=== PATIENT | male | born 1970 | race American Indian/Alaskan Native ===

== ENCOUNTER 2017-09-22 18:41 | Inpatient (IN) | payer MEDICAID ==
[2017-09-22] MEDS ORDERED: Aspirin 325 mg EC Tablets PO STA (19:28)
[2017-09-22 19:41] LABS: BASO # 0.1 K/uL (0.0-0.2); BASO % 1.2 % (0.0-2.0); EOS # 0.1 K/uL (0.0-0.7); HEMATOCRIT 42.9 % (35.0-51.0); LYMPH # 2.4 K/uL (1.0-4.3); MEAN CELL VOLUME 83.8 fL (80.0-94.0); MEAN CORPUSCULAR HEMOGLOBIN 29.1 pg (27.0-31.0); MEAN CORPUSCULAR HGB CONC 34.7 g/dL (33.0-37.0); MEAN PLATELET VOLUME 7.5 fL (7.2-11.7); MONO # 0.5 K/uL (0.0-0.8); MONO % 7.6 % (0.0-10.0); NRBC % 0.1 % (0.0-2.0); RED CELL DISTRIBUTION WIDTH 14.3 % (11.5-14.5)
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
[2017-09-22] MEDS ORDERED: Aspirin 325 mg EC Tablets PO ONE ×2 (19:42→19:52)
--- NOTE | 2017-09-22 19:57 | RAD ---
PROCEDURE: CHEST RADIOGRAPH, 1 VIEW HISTORY: chest pain COMPARISON: Chest radiograph 12/02/2014. FINDINGS: LUNGS: No acute infiltrate is identified bilaterally. PLEURA: No pneumothorax or pleural fluid seen. CARDIOVASCULAR: Normal. OSSEOUS STRUCTURES: No significant abnormalities. VISUALIZED UPPER ABDOMEN: Normal. OTHER FINDINGS: None. IMPRESSION: No interval acute cardiopulmonary disease appreciated.
[2017-09-22 19:59] LABS: ALB/GLOB RATIO 1.3 (1.0-2.1); ALKALINE PHOSPHATASE 93 U/L (38-126); ALT/SGPT 41 U/L (21-72); AST/SGOT 26 U/L (17-59); BILIRUBIN,TOTAL 0.9 mg/dL (0.2-1.3); BLOOD UREA NITROGEN 16 mg/dL (9-20); CALCIUM 8.7 mg/dl (8.6-10.4); CARBON DIOXIDE 29 mmol/L (22-30); CHLORIDE 102 mmol/L (98-107); GFR AFRICAN-AMERICAN > 60; GLUCOSE,RANDOM 116 mg/dL (75-110); SODIUM 141 mmol/L (132-148)
[2017-09-22] MEDS ORDERED: Nitroglycerin 2% Ointment Foilpak UD TOP STA (20:20)
[2017-09-22] MEDS ORDERED: Nitroglycerin 2% Ointment Foilpak UD TOP ONE (20:31)
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
[2017-09-23 04:06] LABS: TROPONIN I 0.029 ng/mL (0.00-0.120)
[2017-09-23] MEDS: Pantoprazole 40 mg EC Tab PO SCH (10:27)
[2017-09-23] MEDS: Enoxaparin 40 mg Syringe SC SCH (10:28)
--- NOTE | 2017-09-23 18:38 | CP.PCM.PN ---
Subjective - Date & Time of Evaluation Date of Evaluation: 09/23/17 Time of Evaluation: 13:00 - Subjective Subjective: clinically same Objective - Vital Signs/Intake and Output Vital Signs (last 24 hours): Temp Pulse Resp BP Pulse Ox 98.1 F 73 20 143/80 96 09/23/17 17:02 09/23/17 17:02 09/23/17 17:02 09/23/17 17:02 09/23/17 17:02 Intake and Output: 09/23/17 09/23/17 06:59 18:59 Intake Total 200 Balance 200 - Medications Medications: Current Medications Aspirin (Aspirin) 325 mg PO DAILY [facility] Last Admin: 09/23/17 10:27 Dose: 325 mg Enoxaparin Sodium (Lovenox) 40 mg SC DAILY [facility] Last Admin: 09/23/17 10:28 Dose: 40 mg Pantoprazole Sodium (Protonix Ec Tab) 40 mg PO DAILY [facility] Last Admin: 09/23/17 10:27 Dose: 40 mg - Labs Labs: 09/22/17 19:39 09/22/17 19:39 - Constitutional Appears: Well - Head Exam Head Exam: ATRAUMATIC, NORMAL INSPECTION, NORMOCEPHALIC - Eye Exam Eye Exam: EOMI, Normal appearance, PERRL Pupil Exam: NORMAL ACCOMODATION, PERRL - ENT Exam ENT Exam: Mucous Membranes Moist, Normal Exam - Neck Exam Neck Exam: Full ROM, Normal Inspection. absent: Lymphadenopathy - Respiratory Exam Respiratory Exam: Clear to Ausculation Bilateral, NORMAL BREATHING PATTERN - Cardiovascular Exam Cardiovascular Exam: REGULAR RHYTHM, +S1, +S2. absent: Murmur - GI/Abdominal Exam GI & Abdominal Exam: Soft, Normal Bowel Sounds. absent: Tenderness - Rectal Exam Rectal Exam: Deferred Assessment and Plan (1) Chest pain Status: Acute (2) Abnormal EKG Status: Acute (3) Bleeding hemorrhoid Status: Acute (4) Chest discomfort Status: Acute (5) Chest pain Status: Acute (6) HTN (hypertension) Status: Acute (7) Headache Status: Acute (8) Pancreatitis Status: Acute (9) Prophylactic measure Status: Acute (10) Syncope Status: Acute - Assessment and Plan (Free Text) Plan: Patient examined. EKG normal. Chest x-ray normal. Troponin I negative. CK-MB normal. Continue aspirin. Continue supportive care. Observation.
[2017-09-24] MEDS: Metoprolol Succinate 12.5 mg XL PO SCH ×2 (06:53→09:48)
[2017-09-24] MEDS: Enoxaparin 40 mg Syringe SC SCH (09:47)
[2017-09-24] MEDS: Pantoprazole 40 mg EC Tab PO SCH (09:49)
[2017-09-24] MEDS ORDERED: Metoprolol Succinate 12.5 mg XL PO SCH (10:00)
[2017-09-24 11:19] LABS: INR 1.1
--- NOTE | 2017-09-24 17:12 | CP.PCM.PN ---
Subjective - Date & Time of Evaluation Date of Evaluation: 09/24/17 Time of Evaluation: 13:00 - Subjective Subjective: clinically same Objective - Vital Signs/Intake and Output Vital Signs (last 24 hours): Temp Pulse Resp BP Pulse Ox 98.4 F 81 21 159/97 H 96 09/24/17 15:29 09/24/17 15:29 09/24/17 15:29 09/24/17 15:29 09/24/17 15:29 - Medications Medications: Current Medications Aspirin (Aspirin) 325 mg PO DAILY [facility] Last Admin: 09/24/17 09:47 Dose: 325 mg Enoxaparin Sodium (Lovenox) 40 mg SC DAILY [facility] Last Admin: 09/24/17 09:47 Dose: 40 mg Metoprolol Succinate (Toprol Xl) 12.5 mg PO DAILY [facility] Last Admin: 09/24/17 09:48 Dose: 12.5 mg Nicotine (Nicoderm Cq) 1 patch TD DAILY [facility] Last Admin: 09/24/17 09:48 Dose: 1 patch Pantoprazole Sodium (Protonix Ec Tab) 40 mg PO DAILY [facility] Last Admin: 09/24/17 09:49 Dose: Not Given - Labs Labs: 09/22/17 19:39 09/22/17 19:39 PT 12.1 SECONDS (9.7-12.2) 09/24/17 11:01 INR 1.1 09/24/17 11:01 APTT 34 SECONDS (21-34) 09/24/17 11:01 - Constitutional Appears: Well - Head Exam Head Exam: ATRAUMATIC, NORMAL INSPECTION, NORMOCEPHALIC - Eye Exam Eye Exam: EOMI, Normal appearance, PERRL Pupil Exam: NORMAL ACCOMODATION, PERRL - ENT Exam ENT Exam: Mucous Membranes Moist, Normal Exam - Neck Exam Neck Exam: Full ROM, Normal Inspection. absent: Lymphadenopathy - Respiratory Exam Respiratory Exam: Clear to Ausculation Bilateral, NORMAL BREATHING PATTERN - Cardiovascular Exam Cardiovascular Exam: REGULAR RHYTHM, +S1, +S2. absent: Murmur - GI/Abdominal Exam GI & Abdominal Exam: Soft, Normal Bowel Sounds. absent: Tenderness - Rectal Exam Rectal Exam: Deferred Assessment and Plan (1) Chest pain Status: Acute (2) Abnormal EKG Status: Acute (3) Bleeding hemorrhoid Status: Acute (4) Chest discomfort Status: Acute (5) Chest pain Status: Acute (6) HTN (hypertension) Status: Acute (7) Headache Status: Acute (8) Pancreatitis Status: Acute (9) Prophylactic measure Status: Acute (10) Syncope Status: Acute - Assessment and Plan (Free Text) Plan: Patient examined. Cardiac consult done. Patient is refusing cardiac catheterization, request repeat stress test. Continue aspirin. Continue supportive care.
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
--- NOTE | 2017-09-24 21:10 | CP.PCM.PN ---
Subjective - Date & Time of Evaluation Date of Evaluation: 09/24/17 Time of Evaluation: 11:05 - Subjective Subjective: Patient refusisng cardiac cath Requests repat stress test scheduled for stress test on Monday Objective - Vital Signs/Intake and Output Vital Signs (last 24 hours): Temp Pulse Resp BP Pulse Ox 98.4 F 81 21 159/97 H 96 09/24/17 15:29 09/24/17 15:29 09/24/17 15:29 09/24/17 15:29 09/24/17 15:29 - Medications Medications: Current Medications Aspirin (Aspirin) 325 mg PO DAILY [facility] Last Admin: 09/24/17 09:47 Dose: 325 mg Enoxaparin Sodium (Lovenox) 40 mg SC DAILY [facility] Last Admin: 09/24/17 09:47 Dose: 40 mg Metoprolol Succinate (Toprol Xl) 12.5 mg PO DAILY [facility] Last Admin: 09/24/17 09:48 Dose: 12.5 mg Nicotine (Nicoderm Cq) 1 patch TD DAILY [facility] Last Admin: 09/24/17 09:48 Dose: 1 patch Pantoprazole Sodium (Protonix Ec Tab) 40 mg PO DAILY [facility] Last Admin: 09/24/17 09:49 Dose: Not Given - Labs Labs: 09/22/17 19:39 09/22/17 19:39 PT 12.1 SECONDS (9.7-12.2) 09/24/17 11:01 INR 1.1 09/24/17 11:01 APTT 34 SECONDS (21-34) 09/24/17 11:01
[2017-09-25 06:34] LABS: HEMATOCRIT 42.2 % (35.0-51.0); MEAN CELL VOLUME 83.2 fL (80.0-94.0); MEAN CORPUSCULAR HEMOGLOBIN 29.5 pg (27.0-31.0); MEAN CORPUSCULAR HGB CONC 35.5 g/dL (33.0-37.0); MEAN PLATELET VOLUME 7.7 fL (7.2-11.7); RED CELL DISTRIBUTION WIDTH 14.3 % (11.5-14.5); WHITE BLOOD COUNT 6.1 K/uL (4.8-10.8)
[2017-09-25 06:38] LABS: INR 1.1
[2017-09-25 06:50] LABS: BLOOD UREA NITROGEN 15 mg/dL (9-20); CALCIUM 8.4 mg/dl (8.6-10.4); CARBON DIOXIDE 29 mmol/L (22-30); CHLORIDE 103 mmol/L (98-107); GFR AFRICAN-AMERICAN > 60; GLUCOSE,RANDOM 96 mg/dL (75-110); POTASSIUM 4.2 mmol/L (3.6-5.2); SODIUM 140 mmol/L (132-148)
[2017-09-25] MEDS: Pantoprazole 40 mg EC Tab PO SCH (11:35)
[2017-09-25] MEDS: Metoprolol Succinate 12.5 mg XL PO SCH (11:45)
[2017-09-25] MEDS: Enoxaparin 40 mg Syringe SC SCH (12:35)
--- NOTE | 2017-09-25 17:52 | CARD ---
APPROVED REPORT EKG Measurement Heart [id number] <Conclusion> Sinus tachycardia Otherwise normal ECG
--- NOTE | 2017-09-25 19:44 | CP.PCM.PN ---
Subjective - Date & Time of Evaluation Date of Evaluation: 09/25/17 Time of Evaluation: 13:40 - Subjective Subjective: clinically same Objective - Vital Signs/Intake and Output Vital Signs (last 24 hours): Temp Pulse Resp BP Pulse Ox 98.2 F 88 20 156/111 H 97 09/25/17 15:07 09/25/17 16:00 09/25/17 15:07 09/25/17 15:07 09/25/17 15:07 Intake and Output: 09/25/17 09/26/17 18:59 06:59 Intake Total 150 Balance 150 - Medications Medications: Current Medications Aspirin (Aspirin) 325 mg PO DAILY [facility] Last Admin: 09/25/17 11:53 Dose: 325 mg Enoxaparin Sodium (Lovenox) 40 mg SC DAILY [facility] Last Admin: 09/25/17 12:35 Dose: 40 mg Metoprolol Succinate (Toprol Xl) 12.5 mg PO DAILY [facility] Last Admin: 09/25/17 11:45 Dose: Not Given Nicotine (Nicoderm Cq) 1 patch TD DAILY [facility] Last Admin: 09/25/17 11:56 Dose: 1 patch Pantoprazole Sodium (Protonix Ec Tab) 40 mg PO DAILY [facility] Last Admin: 09/25/17 11:35 Dose: 40 mg - Labs Labs: 09/25/17 06:25 09/25/17 06:25 PT 12.2 SECONDS (9.7-12.2) 09/25/17 06:25 INR 1.1 09/25/17 06:25 APTT 34 SECONDS (21-34) 09/24/17 11:01 Assessment and Plan (1) Chest pain Status: Acute (2) Abnormal EKG Status: Acute (3) Bleeding hemorrhoid Status: Acute (4) Chest discomfort Status: Acute (5) Chest pain Status: Acute (6) HTN (hypertension) Status: Acute (7) Headache Status: Acute (8) Pancreatitis Status: Acute (9) Prophylactic measure Status: Acute (10) Syncope Status: Acute
--- NOTE | 2017-09-26 06:46 | CARD ---
APPROVED REPORT EXAM: Two-dimensional and M-mode echocardiogram with Doppler and color Doppler. Other Information Quality : GoodRhythm : INDICATION Abnormal EKG/Arrhythmia Syncope RISK FACTORS Hypertension 2D DIMENSIONS IVSd1.4 (0.7-1.1cm)LVDd4.2 (3.9-5.9cm) PWd1.2 (0.7-1.1cm)LVDs3.3 (2.5-4.0cm) FS (%) 22.6 %LVEF (%)45.8 (>50%) M-Mode DIMENSIONS RVDd3.09 (2.1-3.2cm)Left Atrium (MM)3.04 (2.5-4.0cm) IVSd1.15 (0.7-1.1cm)Aortic Root3.58 (2.2-3.7cm) LVDd4.48 (4.0-5.6cm)Aortic Cusp Exc.2.42 (1.5-2.0cm) PWd1.21 (0.7-1.1cm)FS (%) 37 % LVDs2.81 (2.0-3.8cm)LVEF (%)67 (>50%) Mitral Valve MV E Lgpgrdpj45.2cm/sMV A Eqxgvnbm02.7cm/sE/A ratio0.8 TDI E/Lateral E'0.0E/Medial E'0.0 Tricuspid Valve TR Peak Nmpnwfft339gm/sTR Peak Gr.[id number] LEFT VENTRICLE The left ventricle is normal size. There is mild concentric left ventricular hypertrophy. Left ventricle systolic function is normal. The Ejection Fraction is 65-70%. There is normal LV segmental wall motion. Tissue Doppler imaging reveals abnormal left ventricular diastolic dysfunction. RIGHT VENTRICLE The right ventricle is normal size. There is normal right ventricular wall thickness. The right ventricular systolic function is normal. ATRIA The left atrium is mildly dilated. The right atrium size is normal. The interatrial septum is intact with no evidence for an atrial septal defect. AORTIC VALVE The aortic valve is normal in structure. No aortic regurgitation is present. There is no aortic valvular stenosis. There is no aortic valvular vegetation. MITRAL VALVE The mitral valve is normal in structure. There is no evidence of mitral valve prolapse. There is no mitral valve stenosis. Mitral regurgitation is mild. TRICUSPID VALVE The tricuspid valve is normal in structure. There is mild tricuspid regurgitation. Right ventricular systolic pressure is estimated at less than 30 mmHg. There is mild pulmonary hypertension. PULMONIC VALVE The pulmonic valve is not well visualized. There is no pulmonic valvular regurgitation. GREAT VESSELS The aortic root is normal in size. PERICARDIAL EFFUSION There is no significant pericardial effusion. <Conclusion> Left ventricle systolic function is normal. The Ejection Fraction is 65-70%. Diastolic dysfunction. Hypertensive heart disease. No aortic regurgitation is present. Mitral regurgitation is mild. There is mild tricuspid regurgitation. There is mild pulmonary hypertension. There is no pulmonic valvular regurgitation.
--- NOTE | 2017-09-26 09:42 | CP.PCM.PN ---
Subjective - Date & Time of Evaluation Date of Evaluation: 09/26/17 Time of Evaluation: 07:15 - Subjective Subjective: Medicine Note- Dr. Baker's service Patient was seen and examined at bedside. Patient reports no acute complaints at this time. He requests that he be started on HCTZ. He says that prior to being admitted, he was on it. He says he is unfamiliar with the metoprolol xl, and as he read about possible side effects, he decided that he did not want to be started on it, and so he has been refusing it. Nursing reports no acute complaints at this time. Patient is scheduled for 2nd part of his stress test today. Objective - Vital Signs/Intake and Output Vital Signs (last 24 hours): Temp Pulse Resp BP Pulse Ox 98.1 F 83 20 165/120 H 98 09/26/17 08:27 09/26/17 08:27 09/26/17 08:27 09/26/17 08:27 09/26/17 08:27 Intake and Output: 09/26/17 09/26/17 06:59 18:59 Intake Total 400 Output Total 800 Balance -400 - Medications Medications: Current Medications Aspirin (Aspirin) 325 mg PO DAILY [facility] Last Admin: 09/25/17 11:53 Dose: 325 mg Enoxaparin Sodium (Lovenox) 40 mg SC DAILY [facility] Last Admin: 09/25/17 12:35 Dose: 40 mg Hydrochlorothiazide (Microzide) 12.5 mg PO DAILY [facility] Nicotine (Nicoderm Cq) 1 patch TD DAILY [facility] Last Admin: 09/25/17 11:56 Dose: 1 patch Pantoprazole Sodium (Protonix Ec Tab) 40 mg PO DAILY [facility] Last Admin: 09/25/17 11:35 Dose: 40 mg - Labs Labs: 09/25/17 06:25 09/25/17 06:25 PT 12.2 SECONDS (9.7-12.2) 09/25/17 06:25 INR 1.1 09/25/17 06:25 APTT 34 SECONDS (21-34) 09/24/17 11:01 - Constitutional Appears: Non-toxic, No Acute Distress - Head Exam Head Exam: ATRAUMATIC, NORMAL INSPECTION, NORMOCEPHALIC - Eye Exam Pupil Exam: NORMAL ACCOMODATION, PERRL - ENT Exam ENT Exam: Mucous Membranes Moist - Respiratory Exam Respiratory Exam: Clear to Ausculation Bilateral, NORMAL BREATHING PATTERN. absent: Prolonged Expiratory Phase, Rales, Rhonchi, Wheezes - Cardiovascular Exam Cardiovascular Exam: REGULAR RHYTHM, +S1, +S2 - GI/Abdominal Exam GI & Abdominal Exam: Soft, Normal Bowel Sounds. absent: Tenderness, Diminished Bowel Sounds, Hernia, Hypoactive Bowel Sounds - Extremities Exam Extremities Exam: Normal Capillary Refill, Normal Inspection - Neurological Exam Neurological Exam: Alert, Awake, Oriented x3 - Psychiatric Exam Psychiatric exam: Normal Affect, Normal Mood - Skin Skin Exam: Dry, Intact, Normal Color, Warm Assessment and Plan - Assessment and Plan (Free Text) Assessment: Chest pain, rule out ACS ROMIs negative x 2 EKG- sinus tachycardia Echo- 09/24/17- LV systolic function normal, EF 65-70%. Diastolic dysfunction. Hypertensive heart disease. Scheduled for 2nd part of stress test today Patient continues to refuse cardiac cath Aspirin 325mg PO Daily Hypertension Discontinued previously ordered Metoprolol XL, as patient is refusing to start it. Started on HCTZ 25mg PO Daily. If persistently high BP, will start Norvasc Prophylactic Measure Lovenox 40mg SC Daily Protonix 40mg POD aily
[2017-09-26] MEDS: Enoxaparin 40 mg Syringe SC SCH (10:17)
[2017-09-26] MEDS: Pantoprazole 40 mg EC Tab PO SCH (10:18)
--- NOTE | 2017-09-26 17:49 | CP.PCM.PN ---
Subjective - Date & Time of Evaluation Date of Evaluation: 09/26/17 Time of Evaluation: 13:00 - Subjective Subjective: clinically same Objective - Vital Signs/Intake and Output Vital Signs (last 24 hours): Temp Pulse Resp BP Pulse Ox 98.5 F 89 20 184/131 H 94 L 09/26/17 15:20 09/26/17 15:20 09/26/17 15:20 09/26/17 15:20 09/26/17 15:20 Intake and Output: 09/26/17 09/26/17 06:59 18:59 Intake Total 400 250 Output Total 800 Balance -400 250 - Medications Medications: Current Medications Amlodipine Besylate (Norvasc) 10 mg PO DAILY [facility] Aspirin (Aspirin) 325 mg PO DAILY [facility] Last Admin: 09/26/17 10:18 Dose: 325 mg Enoxaparin Sodium (Lovenox) 40 mg SC DAILY [facility] Last Admin: 09/26/17 10:17 Dose: 40 mg Hydrochlorothiazide (Hydrodiuril) 25 mg PO DAILY [facility] Last Admin: 09/26/17 10:20 Dose: 25 mg Nicotine (Nicoderm Cq) 1 patch TD DAILY [facility] Last Admin: 09/26/17 10:19 Dose: 1 patch Pantoprazole Sodium (Protonix Ec Tab) 40 mg PO DAILY [facility] Last Admin: 09/26/17 10:18 Dose: 40 mg - Labs Labs: 09/25/17 06:25 09/25/17 06:25 PT 12.2 SECONDS (9.7-12.2) 09/25/17 06:25 INR 1.1 09/25/17 06:25 APTT 34 SECONDS (21-34) 09/24/17 11:01 - Constitutional Appears: Well - Head Exam Head Exam: ATRAUMATIC, NORMAL INSPECTION, NORMOCEPHALIC - Eye Exam Eye Exam: EOMI, Normal appearance, PERRL Pupil Exam: NORMAL ACCOMODATION, PERRL - ENT Exam ENT Exam: Mucous Membranes Moist, Normal Exam - Neck Exam Neck Exam: Full ROM, Normal Inspection. absent: Lymphadenopathy - Respiratory Exam Respiratory Exam: Decreased Breath Sounds - Cardiovascular Exam Cardiovascular Exam: REGULAR RHYTHM, +S1, +S2 - GI/Abdominal Exam GI & Abdominal Exam: Soft, Diminished Bowel Sounds - Rectal Exam Rectal Exam: Deferred Assessment and Plan (1) Chest pain Status: Acute (2) Abnormal EKG Status: Acute (3) Bleeding hemorrhoid Status: Acute (4) Chest discomfort Status: Acute (5) Chest pain Status: Acute (6) HTN (hypertension) Status: Acute (7) Headache Status: Acute (8) Pancreatitis Status: Acute (9) Prophylactic measure Status: Acute (10) Syncope Status: Acute
--- NOTE | 2017-09-27 05:58 | CARD ---
APPROVED REPORT Protocol: SERGO Test Type: Stress Nuclear Test Indications: ACUT COR. SYNDROME Medications: LIST SCAN Medical History: ACUTE CORONARY SYNDROME Target HR: 176 bpm Resting ECG: NSR Resting Heart Rate: 89 bpm Resting Blood Pressure: /mmHg submaximum (85%): 150 bpm TEST SUMMARY [id number]:01..1.093/.0. PRETESTWARM-UP01:[id number]/98.0. EXERCISESTAGE 103:[id number]/102.0. EXERCISESTAGE 203:[id number]/102.0. EXERCISESTAGE 300:[id number]/102.0. [id number]:[id number]/104.0. POST EXERCISE Reason for Termination: Target heart rate achieved Target HR: No Max HR: 148 bpm 85% of Maximum Predicted HR: 176 bpm Exercise duration: 06:04 min:sec, 3 Stage Exercise capacity: 7.2METs Max Blood Pressure: 230/102mmHg Blood Pressure response to exercise: normal resting BP - exaggerated response Heart Rate response to exercise: appropriate Chest Pain: No, none Angina index: 0 Arrhythmia: No, none ST Change: No, none Deviation: 0 mm INTERPRETATION Stress EKG Conclusion: NEGATIVE EXERCISE STRESS TEST HYPERTENSIVE RESPONSE TO EXERCISE FAIR EFFORT TOLERANCE NUCLEAR STUDIES TO BE READ SEPARATELY EXAM: Myocardial Perfusion REST/STRESS Imaging Protocol The imaging protocol used to acquire images was Rest Tc-99m/stress Tc-99m 1 day Rest Spect myocardial perfusion imaging was performed in supine position 45 minutes following the injection of 12.8 mCi of Tc-99 Myoview. Gated Stress Spect was performed 45 minutes after intravenous 32.8 mCi Tc-99 Myoview injection. The images were gated to evaluate regional wall motion and calculate ventricular ejection fraction.Images were reconstructed using backfilter projection method in short horizontal and verticle long axis. Spect slices were generated. RESTING DATA LWF304.07zcJD5.00L/min ESV45.00mlMyocardial Dgsz837.00g Av. Heart Rate80.00bpm EF63.00% STRESS DATA EKF251.95znTE6.30L/min ESV46.00mlMyocardial Hwqf637.00g EF60.00% Regional WT score at stress:3.00 Regional WM score at stress:0.00 Summed WT score at stress:28.00 Av. Heart Rate92.00bpmSummed WM score at stress:1.00 LV Perf. Quant 17 Seg. SSS1.00 17 Seg. SRS0.00 17 Seg. SDS1.00 Stress Defect Extent (% LAD)0.00Rest Defect Extent (% LAD)0.00Rev. Defect Extent (% LAD)0.00 Stress Defect Extent (% LCX)12.50Rest Defect Extent (% LCX)7.50Rev. Defect Extent (% LCX)1.30 Stress Defect Extent (% RCA)0.00Rest Defect Extent (% RCA)0.00Rev. Defect Extent (% RCA)0.00 Stress Defect Extent (% TATI)2.20Rest Defect Extent (% TATI)1.30Rev. Defect Extent (% TATI)0.20 Other Information Quality:Good Overall Exercise Capacity: Good IMPRESSION Normal Myocardial Perfusion exercise stress study Left Ventricle LV Function:Left ventricle systolic function is normal. The Ejection Fraction is >55%. Conclusion 1. Normal Exercise nuclear stress test. Normal EF
[2017-09-27 08:24] LABS: BASO # 0.1 K/uL (0.0-0.2); BASO % 1.2 % (0.0-2.0); EOS # 0.1 K/uL (0.0-0.7); EOS % 1.2 % (0.0-4.0); HEMATOCRIT 45.4 % (35.0-51.0); LYMPH # 3.1 K/uL (1.0-4.3); LYMPH % 44.6 % (20.0-40.0); MEAN CELL VOLUME 84.6 fL (80.0-94.0); MEAN CORPUSCULAR HEMOGLOBIN 29.3 pg (27.0-31.0); MEAN CORPUSCULAR HGB CONC 34.6 g/dL (33.0-37.0); MEAN PLATELET VOLUME 8.1 fL (7.2-11.7); MONO # 0.4 K/uL (0.0-0.8); MONO % 5.8 % (0.0-10.0); NRBC % 0.2 % (0.0-2.0)
[2017-09-27 08:36] LABS: ALKALINE PHOSPHATASE 83 U/L (38-126); ALT/SGPT 36 U/L (21-72); AST/SGOT 25 U/L (17-59); BILIRUBIN,TOTAL 0.9 mg/dL (0.2-1.3); BLOOD UREA NITROGEN 16 mg/dL (9-20); CALCIUM 8.5 mg/dl (8.6-10.4); CARBON DIOXIDE 29 mmol/L (22-30); CHLORIDE 102 mmol/L (98-107); GFR AFRICAN-AMERICAN > 60; GLUCOSE,RANDOM 127 mg/dL (75-110); POTASSIUM 4.2 mmol/L (3.6-5.2); SODIUM 141 mmol/L (132-148); TOTAL PROTEIN 8.9 g/dL (6.3-8.3)
[2017-09-27] MEDS: Enoxaparin 40 mg Syringe SC SCH (09:16)
[2017-09-27] MEDS: Pantoprazole 40 mg EC Tab PO SCH (09:17)
--- NOTE | 2017-09-27 09:21 | CP.PCM.PN ---
Subjective - Date & Time of Evaluation Date of Evaluation: 09/27/17 Time of Evaluation: 09:20 - Subjective Subjective: PGY-[address] Jasso service: Pt seen and examined at bedside. No acute events overnight per nursing. Nursing reports elevated BP this morning around time of AM meds (153/113). Patient refusing telemetry monitoring, and renal ultrasound, and insists on going home. Patient initially refused to sign against medical advice, put on his jacket, but did not leave the floor. Patient changed his mind and is willing to take the ordered Hydralazine. He denies chest pain, palpitations, headache, or lightheadedness. Objective - Vital Signs/Intake and Output Vital Signs (last 24 hours): Temp Pulse Resp BP Pulse Ox 98.5 F 55 L 18 153/100 H 100 09/27/17 08:01 09/27/17 08:01 09/27/17 08:01 09/27/17 08:01 09/27/17 08:01 Intake and Output: 09/27/17 09/27/17 06:59 18:59 Intake Total 500 Output Total 300 Balance 200 - Medications Medications: Current Medications Amlodipine Besylate (Norvasc) 10 mg PO DAILY [facility] Last Admin: 09/27/17 09:17 Dose: 10 mg Aspirin (Aspirin) 325 mg PO DAILY [facility] Last Admin: 09/27/17 09:18 Dose: 325 mg Enoxaparin Sodium (Lovenox) 40 mg SC DAILY [facility] Last Admin: 09/27/17 09:16 Dose: 40 mg Hydrochlorothiazide (Hydrodiuril) 25 mg PO DAILY [facility] Last Admin: 09/27/17 09:17 Dose: 25 mg Nicotine (Nicoderm Cq) 1 patch TD DAILY [facility] Last Admin: 09/27/17 09:16 Dose: 1 patch Pantoprazole Sodium (Protonix Ec Tab) 40 mg PO DAILY [facility] Last Admin: 09/27/17 09:17 Dose: 40 mg - Labs Labs: 09/27/17 07:10 09/27/17 07:10 PT 12.2 SECONDS (9.7-12.2) 09/25/17 06:25 INR 1.1 09/25/17 06:25 APTT 34 SECONDS (21-34) 09/24/17 11:01 - Constitutional Appears: Non-toxic, No Acute Distress - Head Exam Head Exam: ATRAUMATIC, NORMOCEPHALIC - Eye Exam Eye Exam: EOMI, Normal appearance, PERRL - ENT Exam ENT Exam: Mucous Membranes Moist - Neck Exam Neck Exam: Full ROM - Respiratory Exam Respiratory Exam: Clear to Ausculation Bilateral, NORMAL BREATHING PATTERN - Cardiovascular Exam Cardiovascular Exam: REGULAR RHYTHM, +S1, +S2 - GI/Abdominal Exam GI & Abdominal Exam: Soft, Normal Bowel Sounds. absent: Tenderness - Extremities Exam Extremities Exam: Normal Inspection. absent: Pedal Edema - Back Exam Back Exam: absent: CVA tenderness (L), CVA tenderness (R) - Neurological Exam Neurological Exam: Alert, Awake, Oriented x3 - Psychiatric Exam Psychiatric exam: Normal Affect, Normal Mood - Skin Skin Exam: Normal Color, Warm Assessment and Plan - Assessment and Plan (Free Text) Plan: Uncontrolled Hypertension BP remains elevated this AM - repeated readings of ~160/170 systolic/ over ~100 Diastolic - Patient initially refusing treatment, had clothes on to leave AMA, but changed mind - Patient agrees to be monitored overnight with addition of Hydralazine, with Discharge in AM if BP controlled Discontinued previously ordered Metoprolol XL, as patient is refusing to start it. Continue HCTZ 25mg PO Daily Continue Norvasc 5mg PO Daily Start Hydralazine 50mg PO Q8H Chest pain, rule out ACS ROMIs negative x 2 EKG- sinus tachycardia Echo- 09/24/17- LV systolic function normal, EF 65-70%. Diastolic dysfunction. Hypertensive heart disease. Patient continues to refuse cardiac cath Cleared for discharge per Dr. Woodson, pt to follow up with Dr. Vasquez in two weeks time Aspirin 325mg PO Daily Prophylactic Measure Lovenox 40mg SC Daily Protonix 40mg PO Daily Disposition: Pt cleared for discharge per cardio. Pt held overnight due to uncontrolled BP. Pt again hypertensive this AM, 153/118 at bedside. Pt offered hydralazine but initially refused. Pt initially wanting to leave this morning, and refusing to sign AMA. He then changed his mind and is now accepting hydralazine. Pt agrees to be monitored overnight with addition of hydralazine 50mg PO Q8H. He will be discharged in AM if blood pressure better controlled. Moses Mueller PGY-2 All medical management per Dr. Baker
[2017-09-27 16:50] VITALS: RESP 20; O2SAT 98
--- NOTE | 2017-09-27 19:39 | CP.PCM.PN ---
Subjective - Date & Time of Evaluation Date of Evaluation: 09/27/17 Time of Evaluation: 11:20 - Subjective Subjective: clinically same Objective - Vital Signs/Intake and Output Vital Signs (last 24 hours): Temp Pulse Resp BP Pulse Ox 98.2 F 99 H 20 150/96 H 98 09/27/17 15:10 09/27/17 15:10 09/27/17 15:10 09/27/17 15:10 09/27/17 15:10 - Medications Medications: Current Medications Amlodipine Besylate (Norvasc) 10 mg PO DAILY [facility] Last Admin: 09/27/17 09:17 Dose: 10 mg Aspirin (Aspirin) 325 mg PO DAILY [facility] Last Admin: 09/27/17 09:18 Dose: 325 mg Enoxaparin Sodium (Lovenox) 40 mg SC DAILY [facility] Last Admin: 09/27/17 09:16 Dose: 40 mg Hydralazine HCl (Apresoline) 50 mg PO Q8H [facility] Hydrochlorothiazide (Hydrodiuril) 25 mg PO DAILY [facility] Last Admin: 09/27/17 09:17 Dose: 25 mg Nicotine (Nicoderm Cq) 1 patch TD DAILY [facility] Last Admin: 09/27/17 09:16 Dose: 1 patch Pantoprazole Sodium (Protonix Ec Tab) 40 mg PO DAILY [facility] Last Admin: 09/27/17 09:17 Dose: 40 mg - Labs Labs: 09/27/17 07:10 09/27/17 07:10 PT 12.2 SECONDS (9.7-12.2) 09/25/17 06:25 INR 1.1 09/25/17 06:25 APTT 34 SECONDS (21-34) 09/24/17 11:01 - Constitutional Appears: Well - Head Exam Head Exam: ATRAUMATIC, NORMAL INSPECTION, NORMOCEPHALIC - Eye Exam Eye Exam: EOMI, Normal appearance, PERRL Pupil Exam: NORMAL ACCOMODATION, PERRL - ENT Exam ENT Exam: Mucous Membranes Moist, Normal Exam - Neck Exam Neck Exam: Full ROM, Normal Inspection. absent: Lymphadenopathy - Respiratory Exam Respiratory Exam: Decreased Breath Sounds - Cardiovascular Exam Cardiovascular Exam: REGULAR RHYTHM, +S1, +S2 - GI/Abdominal Exam GI & Abdominal Exam: Soft, Diminished Bowel Sounds - Rectal Exam Rectal Exam: Deferred Assessment and Plan (1) Chest pain Status: Acute (2) Abnormal EKG Status: Acute (3) Bleeding hemorrhoid Status: Acute (4) Chest discomfort Status: Acute (5) Chest pain Status: Acute (6) HTN (hypertension) Status: Acute (7) Headache Status: Acute (8) Pancreatitis Status: Acute (9) Prophylactic measure Status: Acute (10) Syncope Status: Acute
--- NOTE | 2017-09-28 00:23 | CP.PCM.PN ---
Subjective - Date & Time of Evaluation Date of Evaluation: 09/27/17 Time of Evaluation: 13:10 - Subjective Subjective: Patient with normal stress test HTN uncontrolled D/C patient home once BP under control Objective - Vital Signs/Intake and Output Vital Signs (last 24 hours): Temp Pulse Resp BP Pulse Ox 98.2 F 87 20 120/77 98 09/27/17 15:10 09/27/17 22:23 09/27/17 15:10 09/27/17 22:23 09/27/17 15:10 - Medications Medications: Current Medications Amlodipine Besylate (Norvasc) 10 mg PO DAILY [facility] Last Admin: 09/27/17 09:17 Dose: 10 mg Aspirin (Aspirin) 325 mg PO DAILY [facility] Last Admin: 09/27/17 09:18 Dose: 325 mg Enoxaparin Sodium (Lovenox) 40 mg SC DAILY [facility] Last Admin: 09/27/17 09:16 Dose: 40 mg Hydralazine HCl (Apresoline) 50 mg PO Q8H [facility] Last Admin: 09/27/17 22:22 Dose: Not Given Hydrochlorothiazide (Hydrodiuril) 25 mg PO DAILY [facility] Last Admin: 09/27/17 09:17 Dose: 25 mg Nicotine (Nicoderm Cq) 1 patch TD DAILY [facility] Last Admin: 09/27/17 09:16 Dose: 1 patch Pantoprazole Sodium (Protonix Ec Tab) 40 mg PO DAILY [facility] Last Admin: 09/27/17 09:17 Dose: 40 mg - Labs Labs: 09/27/17 07:10 09/27/17 07:10 PT 12.2 SECONDS (9.7-12.2) 09/25/17 06:25 INR 1.1 09/25/17 06:25 APTT 34 SECONDS (21-34) 09/24/17 11:01
[2017-09-28 01:23] VITALS: TEMP 97.5
[2017-09-28 06:24] VITALS: BP 139/87; PULSE 92
[2017-09-28 06:39] LABS: BASO # 0.1 K/uL (0.0-0.2); BASO % 1.2 % (0.0-2.0); EOS # 0.1 K/uL (0.0-0.7); EOS % 1.4 % (0.0-4.0); HEMATOCRIT 44.4 % (35.0-51.0); LYMPH # 2.7 K/uL (1.0-4.3); LYMPH % 48.8 % (20.0-40.0); MEAN CELL VOLUME 84.7 fL (80.0-94.0); MEAN CORPUSCULAR HEMOGLOBIN 29.8 pg (27.0-31.0); MEAN CORPUSCULAR HGB CONC 35.2 g/dL (33.0-37.0); MONO # 0.4 K/uL (0.0-0.8); MONO % 8.2 % (0.0-10.0); NRBC % 0.1 % (0.0-2.0); RED CELL DISTRIBUTION WIDTH 14.1 % (11.5-14.5); WHITE BLOOD COUNT 5.5 K/uL (4.8-10.8)
[2017-09-28 06:50] LABS: ALB/GLOB RATIO 1.3 (1.0-2.1); ALKALINE PHOSPHATASE 83 U/L (38-126); ALT/SGPT 36 U/L (21-72); AST/SGOT 21 U/L (17-59); BILIRUBIN,TOTAL 0.5 mg/dL (0.2-1.3); BLOOD UREA NITROGEN 18 mg/dL (9-20); CALCIUM 8.5 mg/dl (8.6-10.4); CARBON DIOXIDE 32 mmol/L (22-30); CHLORIDE 101 mmol/L (98-107); GFR AFRICAN-AMERICAN > 60; GLUCOSE,RANDOM 108 mg/dL (75-110); POTASSIUM 4.6 mmol/L (3.6-5.2); SODIUM 141 mmol/L (132-148); TOTAL PROTEIN 7.3 g/dL (6.3-8.3)
--- NOTE | 2017-09-28 06:51 | CP.PCM.PN ---
Subjective - Date & Time of Evaluation Date of Evaluation: 09/28/17 Time of Evaluation: 09:34 - Subjective Subjective: PGY2 Medicine Note for Dr. Josephine Baker; all management as per Dr. Josephine Baker The patient had left/been discharged before I had a chance to see the patient. The patient had been deemed stable for discharge yesterday as per Dr. Josephine Baker. Objective - Vital Signs/Intake and Output Vital Signs (last 24 hours): Temp Pulse Resp BP Pulse Ox 97.5 F L 92 H 20 139/87 98 09/27/17 23:05 09/28/17 06:24 09/27/17 23:05 09/28/17 06:24 09/27/17 23:05 Intake and Output: 09/27/17 09/28/17 18:59 06:59 Intake Total 120 Output Total 400 Balance -280 - Medications Medications: Current Medications Amlodipine Besylate (Norvasc) 10 mg PO DAILY [facility] Last Admin: 09/27/17 09:17 Dose: 10 mg Aspirin (Aspirin) 325 mg PO DAILY [facility] Last Admin: 09/27/17 09:18 Dose: 325 mg Enoxaparin Sodium (Lovenox) 40 mg SC DAILY [facility] Last Admin: 09/27/17 09:16 Dose: 40 mg Hydralazine HCl (Apresoline) 50 mg PO Q8H [facility] Last Admin: 09/28/17 06:24 Dose: Not Given Hydrochlorothiazide (Hydrodiuril) 25 mg PO DAILY [facility] Last Admin: 09/27/17 09:17 Dose: 25 mg Nicotine (Nicoderm Cq) 1 patch TD DAILY [facility] Last Admin: 09/27/17 09:16 Dose: 1 patch Pantoprazole Sodium (Protonix Ec Tab) 40 mg PO DAILY [facility] Last Admin: 09/27/17 09:17 Dose: 40 mg - Labs Labs: 09/28/17 06:16 09/28/17 06:16 PT 12.2 SECONDS (9.7-12.2) 09/25/17 06:25 INR 1.1 09/25/17 06:25 APTT 34 SECONDS (21-34) 09/24/17 11:01 Assessment and Plan - Assessment and Plan (Free Text) Assessment: Uncontrolled Hypertension BP remains elevated this AM - repeated readings of ~160/170 systolic/ over ~100 Diastolic - Patient initially refusing treatment, had clothes on to leave AMA, but changed mind - Patient agrees to be monitored overnight with addition of Hydralazine, with Discharge in AM if BP controlled Discontinued previously ordered Metoprolol XL, as patient is refusing to start it. Continue HCTZ 25mg PO Daily Continue Norvasc 5mg PO Daily Start Hydralazine 50mg PO Q8H Chest pain, rule out ACS ROMIs negative x 2 EKG- sinus tachycardia Echo- 09/24/17- LV systolic function normal, EF 65-70%. Diastolic dysfunction. Hypertensive heart disease. Patient continues to refuse cardiac cath Cleared for discharge per Dr. Woodson, pt to follow up with Dr. Vasquez in two weeks time Aspirin 325mg PO Daily Prophylactic Measure Lovenox 40mg SC Daily Protonix 40mg PO Daily Disposition: Pt cleared for discharge per cardio. Pt held overnight due to uncontrolled BP. Pt again hypertensive this AM, 153/118 at bedside. Pt offered hydralazine but initially refused. Pt initially wanting to leave this morning, and refusing to sign AMA. He then changed his mind and is now accepting hydralazine. Pt agrees to be monitored overnight with addition of hydralazine 50mg PO Q8H. He will be discharged in AM if blood pressure better controlled The BP has been controlled overnight and will be d/c as per Dr. Josephine Baker Scripts in chart All Management as per Dr. Josephine Baker
== END 2017-09-28 07:18 | disposition home or self-care (01) | DRG 543 ==
LOC: C.ER 18:41 → C.9E 20:28 → C.6T 22:17 → OBSVTOIN 09-25 14:14
PROVIDERS: ADMIT Internal Medicine Nephrology; ATTEND Internal Medicine Nephrology
DX: I25.110 Atherosclerotic heart disease of native coronary artery with unstable angina pectoris (principal); K85.90 Acute pancreatitis without necrosis or infection, unspecified; I11.9 Hypertensive heart disease without heart failure; I10 Essential (primary) hypertension; F17.210 Nicotine dependence, cigarettes, uncomplicated; J45.909 Unspecified asthma, uncomplicated; K64.4 Residual hemorrhoidal skin tags; R55 Syncope and collapse